=== PATIENT | male | born 1970 | race Two or more races ===

== ENCOUNTER 2019-01-05 20:43 | Emergency (ER) | payer SELFPAY ==
[~2019-01-05] VITALS: Ht 167.6 cm; Wt 74.8 kg
[2019-01-05 21:05] VITALS: BP 168/98
[2019-01-05] MEDS ORDERED: CEPH-264 PO (21:25)
--- NOTE | 2019-01-05 21:25 | PHYS DOC ---
Adult General Chief Complaint Chief Complaint: FINGER INJURY [facility] HPI Patient is a 48 year old male presents to the ED complaining of right 3rd finger injury x 1 day ago. Patient states he had his finger injured while putting up drywall. Patient has a history of an old fracture to right third finger. States that he had a splinter go in the DIP region of his right 3rd finger. States he went to the doctor and they removed it but thinks it might be some piece deeper in there so he came to the ED to have and examined. Denies fever, weakness, paresthesias, drainage, nausea/vomiting or decreased ROM. (MOOK JONES) Review of Systems Review of Systems Constitutional: Denies fever or chills [] Eyes: Denies change in visual acuity, redness, or eye pain [] HENT: Denies nasal congestion or sore throat [] Respiratory: Denies cough or shortness of breath [] Cardiovascular: No additional information not addressed in HPI [] GI: Denies abdominal pain, nausea, vomiting, bloody stools or diarrhea [] : Denies dysuria or hematuria [] Musculoskeletal: Complains of finger injury. Denies back pain or joint pain [] Integument: Denies rash or skin lesions [] Neurologic: Denies headache, focal weakness or sensory changes [] All other systems were reviewed and found to be within normal limits, except as documented in this note. (MOOK JONES) Physical Exam Physical Exam Constitutional: Well developed, well nourished, no acute distress, non-toxic appearance. [] HENT: Normocephalic, atraumatic Skin: Warm, dry, no erythema, no rash. [] Back: No tenderness, no CVA tenderness. [] Extremities: Right 3rd dorsal DIP pinpoint puncture wound. Mild surrounding erythema. FROM. NV intact. no palpable FB, drainage or pus. No tenderness, no cyanosis, no clubbing, ROM intact, no edema. [] Neurologic: Alert and oriented X 3, normal motor function, normal sensory function, no focal deficits noted. [] Psychologic: Affect normal, judgement normal, mood normal. [] (MOOK JONES) Current Patient Data Vital Signs Vital Signs Date Time Temp Pulse Resp B/P (MAP) Pulse Ox O2 Delivery O2 Flow Rate FiO2 01/05/19 21:05 98.6 86 16 168/98 (121) 98 Room Air 98.6 (DARREL HONG MD) EKG EKG [] (MOOK JONES) Radiology/Procedures Radiology/Procedures [] (MOOK JONES) Course & Med Decision Making Course & Med Decision Making Pertinent Labs and Imaging studies reviewed. (See chart for details) []No foreign body visualized or palpated on exam. Discussed imaging findings with patient, no foreign body. Will treat with keflex outpatient. Discussed symptomatic treatment and follow-up with orthopedics if pain persists. Provided contact information/education. Discussed reasons to return to the ED. Patient understands and agrees with plan. (MOOK JONES) Course & Med Decision Making Staff Physician Addendum: I was working in the ER during the course of this patient's visit. I was available for consultation as needed, but I was not directly involved in the care of this patient. (DARREL HONG MD) Dragon Disclaimer Dragon Disclaimer This electronic medical record was generated, in whole or in part, using a voice recognition dictation system. (MOOK JONES) Departure Departure Impression: Primary Impression: Puncture wound Disposition: 01 HOME, SELF-CARE Condition: IMPROVED Referrals: NO PCP (PCP) JAMAL SINGH II, MD Patient Instructions: Puncture Wound Scripts Cephalexin (KEFLEX) 500 Mg Capsule 1 CAP PO TID for 7 Days, #21 CAP Prov: MOOK JONES 01/05/19 MOOK JONES Jan 05, 2019 21:25 DARREL HONG MD Jan 06, 2019 05:09
--- NOTE | 2019-01-06 01:46 | RAD ---
3 views right third digit dated 01/05/2019. No comparison available. CLINICAL INDICATION: Pain after injury. FINDINGS: 3 views right third digit show diffuse soft tissue swelling. Underlying osseous structures are intact. No displaced fracture. No periostitis or bone destruction. IMPRESSION: Soft tissue swelling with no evidence of underlying acute bony abnormality. Electronically signed by: Krzysztof Galicia MD (01/06/2019 1:43 AM) [facility]
== END 2019-01-05 21:50 | disposition home or self-care (01) ==
LOC: ER 20:43
DX: S61.232A Puncture wound without foreign body of right middle finger without damage to nail, initial encounter (principal); W45.8XXA Other foreign body or object entering through skin, initial encounter; Y93.89 Activity, other specified; Y92.89 Other specified places as the place of occurrence of the external cause; Y99.8 Other external cause status
CPT/HCPCS: 73140; 99283